=== PATIENT | female | born 1975 | race Caucasian/White ===

== ENCOUNTER → 2016-04-20 | Outpatient (CLI) | payer OTHER ==
--- NOTE | 2016-04-20 23:10 | DI ---
PELVIC ULTRASOUND, 04/20/2016 2:02 PM Clinical History: Chronic pelvic pain. Status post hysterectomy and bilateral salpingectomy with part ial left the rectum E. Previous Exam: 08/11/2015. Technique: Transabdominal and transvaginal scans are performed. The uterus is surgically absent. The right ovary is visualized on both the transabdominal and transva ginal scans and this small but otherwise unremarkable. It measures approximately 12 x 20 x 22 mm and has normal flow. The left ovary was not identified either with the transabdominal or transvaginal nicole simmons. There are no fluid collections or masses. Readin. Status post hysterectomy. The right ovary is normal. The left ovary could not be identified. 2. No free fluid collection or mass is present.
== END ==
LOC: US 13:52
PROVIDERS: ATTEND Obstetrics & Gynecology
DX: R10.2 Pelvic and perineal pain (principal); F17.210 Nicotine dependence, cigarettes, uncomplicated; Z98.890 Other specified postprocedural states
CPT/HCPCS: 76830; 76856